=== PATIENT | male | born 1980 | race Asian ===

== ENCOUNTER 2021-12-09 15:45 | Emergency (ER) | payer BC ==
[2021-12-09] MEDS ORDERED: Lidocaine Viscous Sol 2% 15 ml UD Cup ONE (18:08)
[2021-12-09] MEDS ORDERED: Mag-Al Plus 1200 MG/1200 MG/120 MG/30 ML UDCUP ONE (18:08)
== END 2021-12-09 19:38 | disposition home or self-care (01) ==
LOC: CSHERS 15:45
DX: K21.9 Gastro-esophageal reflux disease without esophagitis (principal); Z79.899 Other long term (current) drug therapy
CPT/HCPCS: 93005